=== PATIENT | male | born 1955 | race African-American/Black ===

== ENCOUNTER 2019-08-13 15:31 | Outpatient (CLI) | payer OTHER ==
--- NOTE | 2019-08-14 07:15 | Ultrasound Report ---
ULTRASOUND BLADDER INDICATION / CLINICAL INFORMATION: ABDOMINAL PAIN. COMPARISON: Ultrasound of the abdomen from earlier the same day FINDINGS: Moderate distention of the urinary bladder. There is material of intermediate echogenicity at the bas e of the bladder in the area of the bladder outlet. There is no definite associated internal vascular ity. Remainder is bladder wall has normal thickness. Right ureteral jet was demonstrated. The left ur eteral jet was not. Volume of the bladder during scanning was 88 mL. Prostate measures 4.5 x 5.9 x 4. 6 m, enlarged. IMPRESSION: 1. Echogenic material in the region of the bladder outlet may represent localized thickening of the b ladder wall versus blood products or infectious debris layering dependently. Correlation with urinaly sis is recommended. If this does not reveal urinary tract infection and/or hematuria, further evaluat ion with cystoscopy or perhaps a CT cystogram may be warranted. 2. Prostatomegaly. Signer Name: Giovanni Llamas MD Signed: 08/13/2019 6:03 PM Workstation Name: [id number]
--- NOTE | 2019-08-14 07:16 | Ultrasound Report ---
ULTRASOUND ABDOMEN, COMPLETE INDICATION: ABDOMINAL PAIN. COMPARISON: None available. FINDINGS: Pancreas: Normal. Abdominal Aorta: Normal. IVC: Normal. Liver: Normal. Gallbladder: Partially collapsed secondary to recent meal but appears within normal limits Bile ducts: Normal. Common Bile Duct measures 6 mm. Right Kidney: Normal. Left Kidney: Complex left upper pole renal cyst with thick internal septation measures 3.6 x 3.7 x 3. 2 cm. No increased color Doppler flow. Nonobstructing 5 mm left intrarenal stone Spleen: Normal. Free fluid: None. Additional Findings: None. IMPRESSION: 1. Complex Bosniak type II F3 0.7 cm left renal cyst. Recommend 6 month follow-up ultrasound or pre a nd postcontrast CT 2. Left nephrolithiasis. No hydronephrosis 3. Otherwise negative abdominal ultrasound Signer Name: John Miles MD Signed: 08/13/2019 5:25 PM Workstation Name: [id number]
== END 2019-08-13 15:32 | disposition home or self-care (01) ==
LOC: SPVWC 15:31
PROVIDERS: ATTEND Family Medicine
DX: N20.0 Calculus of kidney (principal); N28.1 Cyst of kidney, acquired; N32.89 Other specified disorders of bladder; N42.89 Other specified disorders of prostate
CPT/HCPCS: 76700; 76856